=== PATIENT | male | born 1945 | race Caucasian/White ===

== ENCOUNTER 2016-05-13 12:16 | Emergency (ER) | payer MEDICARE, BC ==
[2016-05-13] MEDS ORDERED: SODIUM CHLORIDE 0.9% 1,000 ML ONE (19:48)
== END 2016-05-13 20:21 | disposition home or self-care (01) ==
LOC: ER 12:16
CPT/HCPCS: 36415; 36592; 70450; 80053; 85014; 85018; 85025; 93005; 96360